=== PATIENT | male | born 1970 | race Caucasian/White ===

== ENCOUNTER 2016-09-12 05:25 | Inpatient (IN) | payer MEDICAID, OTHER ==
[~2016-09-12] VITALS: Ht 180.3 cm; Wt 115.5 kg
[~2016-09-12 05:25] MED LIST: 0.9% SODIUM CHLORIDE 10 ML VIAL IVP ONE; DEXAMETHASONE SOD PHOS 4 MG/ML VIAL IVP ONE; FentaNYL CITRATE-PF 100 MCG/2 ML VIAL IVP ONE; FentaNYL CITRATE-PF 250 MCG/5 ML VIAL IVP ONE; KETAMINE HCL 50 MG/ML 10 ML VIAL IVP ONE; KETOROLAC TROMETHAMINE 60 MG/2 ML VIAL IM ONE; LIDOCAINE HCL/PF 2% 5 ML VIAL IM ONE; MIDAZOLAM HCL 2 MG/2 ML VIAL IVP ONE; ONDANSETRON HCL 4 MG/2 ML VIAL IVP ONE; PROPOFOL 1% 20 ML VIAL IVP ONE; ROCURONIUM BROMIDE 10 MG/ML 5 ML VIAL IVP ONE; SUCCINYLCHOLINE CHLORIDE 20 MG/ML 10 ML VIAL IVP ONE
[2016-09-12] MEDS ORDERED: RINGERS SOLUTION,LACTATED 1,000 ML IV ONE ×2 (05:30→07:11)
[2016-09-12] MEDS ORDERED: HYDR-309 PO (06:10)
[2016-09-12] MEDS ORDERED: BACL10TA PO (06:10)
[2016-09-12] MEDS ORDERED: GABA-531 PO (06:10)
[2016-09-12] MEDS ORDERED: OMEP40CA12 PO (06:10)
[2016-09-12 06:51] LABS: EOSINOPHILS % (AUTO) 4.5 % (1.0-6.0); HEMATOCRIT 42.6 % (41-53); HEMOGLOBIN 13.8 g/dL (13.5-17.5); LYMPHOCYTES # (AUTO) 2.9 K/uL (1.0-4.8); LYMPHOCYTES % (AUTO) 38.7 % (22.0-44.0); MEAN CORPUSCULAR HEMOGLOBIN 28.1 pg (26.0-34.0); MEAN CORPUSCULAR HGB CONC 32.4 G/dL (31.0-37.0); MEAN CORPUSCULAR VOLUME 87 fL (80-100); MONOCYTES # (AUTO) 0.6 K/uL (0.1-1.0); MONOCYTES % (AUTO) 7.7 % (2.0-9.0); NEUTROPHILS # (AUTO) 3.6 K/uL (1.8-7.7); NEUTROPHILS % (AUTO) 48.1 % (40.0-70.0); PLATELET COUNT (AUTO) 224 K/uL (150-450); RED BLOOD CELL COUNT(AUTO) 4.92 MIL/uL (4.50-5.90); RED CELL DISTRIBUTION WIDTH 14.2 % (11.5-14.5); WHITE BLOOD COUNT (AUTO) 7.5 K/uL (4.5-11.0)
[2016-09-12 06:57] LABS: ANION GAP 6 mmol/L (8-16); CALCIUM, TOTAL 9.1 mg/dL (8.8-10.5); CARBON DIOXIDE 29 mmol/L (22-29); CHLORIDE 104 mmol/L (98-107); CREATININE 1.17 mg/dL (0.60-1.30); GLOMERULAR FILTR. RATE CALC > 60 mL/min (>60); SODIUM SERUM 139 mmol/L (136-145); UREA NITROGEN, BLOOD 15 mg/dL (7-18)
[2016-09-12 07:00] LABS: PROTHROMBIN TIME 10.9 SEC (9.4-11.6)
[2016-09-12 07:04] LABS: ALANINE AMINOTRANSFERASE 27 U/L (12-78); ALBUMIN 3.7 g/dL (3.4-5.0); ASPARTATE AMINOTRANSFERASE 14 U/L (15-37); BILIRUBIN,TOTAL 0.2 mg/dL (0.1-1.0); TOTAL PROTEIN, SERUM 7.6 g/dL (6.4-8.2)
[2016-09-12] MEDS ORDERED: BUPIVACAINE/EPI/PF 0.5% 30 ML VIAL ONE (07:10)
[2016-09-12] MEDS ORDERED: GUM MASTIC/STORAX/MSAL/ALCOHOL LIQUID 0.67 ML VIAL TP ONE (07:10)
[2016-09-12] MEDS ORDERED: SODIUM CHLORIDE 0.9% 0 ML IV ONE (07:11)
[2016-09-12] MEDS ORDERED: VANCOMYCIN HCL 1 GM/VIAL ONE (07:11)
[2016-09-12] MEDS ORDERED: BUPIVACAINE HCL/PF 0.5% 30 ML VIAL ONE (07:11)
[2016-09-12] MEDS ORDERED: SODIUM CHLORIDE 0.9% 10 ML ONE (07:11)
[2016-09-12] MEDS ORDERED: GELATIN SPONGE,ABSORBABLE 100 MM TP ONE (07:11)
[2016-09-12] MEDS ORDERED: THROMBIN, BOVINE 20000 UNITS/VIAL POWDER TP ONE (07:12)
[2016-09-12] MEDS ORDERED: BACITRACIN 50,000 UNITS/VIAL ONE (07:12)
[2016-09-12] MEDS ORDERED: FentaNYL CITRATE-PF 100 MCG/2 ML VIAL IVP PRN ×2 (09:15→09:45)
[2016-09-12] MEDS ORDERED: MEPERIDINE-PF 25 MG/ML SYRINGE IVP PRN (09:15)
[2016-09-12] MEDS ORDERED: DIAZEPAM 5 MG TABLET PO PRN (09:30)
[2016-09-12] MEDS ORDERED: BENZOCAINE/MENTHOL LOZENGE [8 LOZENGES/PACKET] PO PRN (09:30)
[2016-09-12] MEDS ORDERED: MAG HYDROX/AL HYDROX/SIMETH 30 ML SUSP UDCUP PO PRN (10:30)
[2016-09-12] MEDS ORDERED: ACETAMINOPHEN 325 MG TABLET PO PRN ×2 (10:30→22:00)
[2016-09-12] MEDS ORDERED: ONDANSETRON HCL 4 MG/2 ML VIAL IVP PRN (10:30)
[2016-09-12] MEDS: HYDROmorphone 2 MG/ML SYRINGE IVP PRN ×9 (10:53→23:37)
[2016-09-12] MEDS ORDERED: HYDROmorphone 2 MG/ML SYRINGE ONE (10:53)
[2016-09-12 12:12] VITALS: BP 130/97
[2016-09-12] MEDS: CYCLOBENZAPRINE HCL 10 MG TABLET PO SCH ×2 (15:53→23:17)
[2016-09-12] MEDS: ACETAMINOPHEN 1000 MG/ISO-OSM 100 ML IV SCH ×2 (15:53→23:17)
[2016-09-12] MEDS: CeFAZolin 1 GM/DEXTROSE 50 ML IV SCH ×2 (15:53→23:17)
[2016-09-12] MEDS: RINGERS SOLUTION,LACTATED 1,000 ML IV SCH (15:55)
[2016-09-12 17:18] VITALS: BP 143/80
[2016-09-12 20:26] VITALS: BP 126/78
[2016-09-12] MEDS: ZOLPIDEM TARTRATE 5 MG TABLET PO SCH (23:29)
[2016-09-13 00:29] VITALS: BP 127/88
[2016-09-13] MEDS: RINGERS SOLUTION,LACTATED 1,000 ML IV SCH (01:00)
[2016-09-13] MEDS: OXYGEN THERAPY IH SCH ×2 (01:01→08:00)
[2016-09-13 04:13] VITALS: BP 113/73
[2016-09-13] MEDS: HYDROmorphone 2 MG/ML SYRINGE IVP PRN ×4 (06:13→23:01)
[2016-09-13 06:19] LABS: BASOPHILS % (AUTO) 0.3 % (0.0-2.0); EOSINOPHILS % (AUTO) 0.3 % (1.0-6.0); HEMATOCRIT 39.5 % (41-53); HEMOGLOBIN 12.9 g/dL (13.5-17.5); LYMPHOCYTES # (AUTO) 2.4 K/uL (1.0-4.8); LYMPHOCYTES % (AUTO) 17.9 % (22.0-44.0); MEAN CORPUSCULAR HEMOGLOBIN 28.2 pg (26.0-34.0); MEAN CORPUSCULAR HGB CONC 32.6 G/dL (31.0-37.0); MEAN CORPUSCULAR VOLUME 87 fL (80-100); MONOCYTES % (AUTO) 7.2 % (2.0-9.0); NEUTROPHILS # (AUTO) 9.9 K/uL (1.8-7.7); NEUTROPHILS % (AUTO) 74.3 % (40.0-70.0); PLATELET COUNT (AUTO) 219 K/uL (150-450); RED BLOOD CELL COUNT(AUTO) 4.57 MIL/uL (4.50-5.90); RED CELL DISTRIBUTION WIDTH 14.2 % (11.5-14.5); WHITE BLOOD COUNT (AUTO) 13.3 K/uL (4.5-11.0)
[2016-09-13 06:21] LABS: ANION GAP 8 mmol/L (8-16); CALCIUM, TOTAL 8.5 mg/dL (8.8-10.5); CARBON DIOXIDE 28 mmol/L (22-29); CHLORIDE 101 mmol/L (98-107); CREATININE 1.02 mg/dL (0.60-1.30); GLOMERULAR FILTR. RATE CALC > 60 mL/min (>60); POTASSIUM 3.9 mmol/L (3.5-5.1); SODIUM SERUM 137 mmol/L (136-145); UREA NITROGEN, BLOOD 15 mg/dL (7-18)
[2016-09-13 08:00] VITALS: BP 136/84
[2016-09-13] MEDS: CYCLOBENZAPRINE HCL 10 MG TABLET PO SCH ×2 (08:17→15:56)
[2016-09-13] MEDS: ACETAMINOPHEN 1000 MG/ISO-OSM 100 ML IV SCH ×2 (08:17→15:56)
[2016-09-13] MEDS: DOCUSATE SODIUM 100 MG CAPSULE PO SCH ×3 (08:17→21:00)
[2016-09-13] MEDS: PANTOPRAZOLE SODIUM 40 MG DR TABLET PO SCH (08:17)
[2016-09-13 12:00] VITALS: BP 119/71
[2016-09-13 16:00] VITALS: BP 123/74
[2016-09-13] MEDS: ZOLPIDEM TARTRATE 5 MG TABLET PO SCH (19:52)
[2016-09-13 20:00] VITALS: BP 127/80
[2016-09-14 00:12] VITALS: BP 110/66
[2016-09-14] MEDS: CYCLOBENZAPRINE HCL 10 MG TABLET PO SCH ×4 (01:41→17:42)
[2016-09-14] MEDS: HYDROmorphone 2 MG/ML SYRINGE IVP PRN ×3 (02:59→20:28)
[2016-09-14 03:41] VITALS: BP 121/75
[2016-09-14] MEDS: OxyCODONE HCL/ACETAMINOPHEN 5-325 MG TABLET PO PRN ×2 (07:03→14:03)
[2016-09-14] MEDS: OXYGEN THERAPY IH SCH ×4 (08:00→20:00)
[2016-09-14 08:10] VITALS: BP 108/65
[2016-09-14] MEDS: DOCUSATE SODIUM 100 MG CAPSULE PO SCH ×4 (08:45→20:28)
[2016-09-14] MEDS: PANTOPRAZOLE SODIUM 40 MG DR TABLET PO SCH (08:45)
[2016-09-14 11:41] VITALS: BP 130/80
[2016-09-14 15:59] VITALS: BP 118/72
[2016-09-14 20:00] VITALS: BP 117/67
[2016-09-14] MEDS: ZOLPIDEM TARTRATE 5 MG TABLET PO SCH (20:28)
[2016-09-14] MEDS ORDERED: PERCT10 PO (23:38)
[2016-09-14] MEDS ORDERED: CYCL10 PO (23:40)
[2016-09-15] MEDS: HYDROmorphone 2 MG/ML SYRINGE IVP PRN ×2 (00:09→02:42)
[2016-09-15] MEDS: CYCLOBENZAPRINE HCL 10 MG TABLET PO SCH ×4 (00:10→23:49)
[2016-09-15 00:14] VITALS: BP 130/81
[2016-09-15] MEDS: OXYGEN THERAPY IH SCH ×4 (00:55→20:00)
[2016-09-15] MEDS: OxyCODONE HCL/ACETAMINOPHEN 5-325 MG TABLET PO PRN ×6 (03:36→23:50)
[2016-09-15 05:31] VITALS: BP 144/82
[2016-09-15 07:55] VITALS: BP 129/76
[2016-09-15] MEDS: PANTOPRAZOLE SODIUM 40 MG DR TABLET PO SCH (07:55)
[2016-09-15] MEDS: DOCUSATE SODIUM 100 MG CAPSULE PO SCH ×3 (07:55→19:46)
[2016-09-15] MEDS: MAGNESIUM HYDROXIDE SUSPENSION 30 ML UDCUP PO PRN ×2 (11:09→11:14)
[2016-09-15 11:57] VITALS: BP 131/81
[2016-09-15 15:48] VITALS: BP 130/80
[2016-09-15] MEDS: ZOLPIDEM TARTRATE 5 MG TABLET PO SCH (19:47)
[2016-09-15 20:00] VITALS: BP 123/83
[2016-09-16] VITALS: BP 118/74
[2016-09-16 03:55] VITALS: BP 114/65
[2016-09-16] MEDS: OxyCODONE HCL/ACETAMINOPHEN 5-325 MG TABLET PO PRN (04:00)
== END 2016-09-16 07:10 | disposition home or self-care (01) | DRG 471 ==
LOC: 4E 05:25
PROVIDERS: ADMIT Neurological Surgery; ATTEND Neurological Surgery
PROC: 00NW0ZZ Release Cervical Spinal Cord, Open Approach (ICD-10-PCS; 2016-09-12)
PROC: 4A11X4G Monitoring of Peripheral Nervous Electrical Activity, Intraoperative, External Approach (ICD-10-PCS; 2016-09-12)
PROC: 0RG2071 Fusion of 2 or more Cervical Vertebral Joints with Autologous Tissue Substitute, Posterior Approach, Posterior Column, Open Approach (ICD-10-PCS; principal; 2016-09-12 07:30)
DX: M47.12 Other spondylosis with myelopathy, cervical region (principal); S14.123A Central cord syndrome at C3 level of cervical spinal cord, initial encounter; F17.210 Nicotine dependence, cigarettes, uncomplicated; M48.02 Spinal stenosis, cervical region; E66.9 Obesity, unspecified; Z68.35 Body mass index [BMI] 35.0-35.9, adult; Y93.89 Activity, other specified; Y92.89 Other specified places as the place of occurrence of the external cause; Y99.8 Other external cause status; V89.2XXA Person injured in unspecified motor-vehicle accident, traffic, initial encounter; Z79.891 Long term (current) use of opiate analgesic
CPT/HCPCS: 87081; 93005; 97161; 97165; 97530; 97535; C1713; G0238; J0131; J0330; J0690; J1030; J1100; J1170; J1885; J2250; J2405; J2704; J3010; J3370; J3490; J7030; J7120